=== PATIENT | female | born 1985 | race Caucasian/White ===

== ENCOUNTER 2016-11-02 05:14 | Inpatient (IN) | payer MEDICAID, OTHER ==
[~2016-11-02] VITALS: Ht 160 cm; Wt 63.6 kg
[~2016-11-02 05:14] MED LIST: PRENATALS; [UNRECOGNIZED DRUG - REMARK]
[2016-11-02 05:22] VITALS: BP 135/85
[2016-11-02] MEDS ORDERED: OXYTOCIN 30U/ 0.9% NaCL 500ML 500 ML ONE ×2 (05:26→09:46)
[2016-11-02] MEDS ORDERED: NEWBORN KIT ONE (05:26)
[2016-11-02] MEDS ORDERED: OXYTOCIN 30U/ 0.9% NaCL 500ML 500 ML IV PRN (05:35)
[2016-11-02] MEDS ORDERED: OXYTOCIN 30U/ 0.9% NaCL 500ML 500 ML IV ONE (05:35)
[2016-11-02] MEDS ORDERED: D5%-LACTATED RINGERS 1,000 ML IV SCH (05:35)
[2016-11-02] MEDS ORDERED: LACTATED RINGERS 1,000 ML IV SCH (05:35)
[2016-11-02 05:48] LABS: DAU SCREEN DISCLAIMER
[2016-11-02] MEDS ORDERED: FENTANYL PF 100 MCG/2ML ONE ×2 (05:52→07:27)
[2016-11-02] MEDS: FENTANYL PF 100 MCG/2ML IV PRN ×3 (05:55→08:31)
[2016-11-02] MEDS ORDERED: FENTANYL PF 100 MCG/2ML IVPush PRN (06:00)
[2016-11-02] MEDS ORDERED: METOCLOPRAMIDE 5 MG/ML, 2ML IVPush PRN (06:00)
[2016-11-02] MEDS ORDERED: SODIUM CITRATE/CITRIC ACID 30 ML UDC PO PRN (06:00)
[2016-11-02] MEDS ORDERED: PLEASE ENTER HEIGHT AND WEIGHT MC SCH (06:00)
[2016-11-02 06:24] LABS: HEMATOCRIT 34.5 % (34.6-47.8); HEMOGLOBIN 11.8 g/dL (11.7-16.4); WHITE BLOOD COUNT 11.6 x10^3/uL (3.4-10)
[2016-11-02] MEDS ORDERED: ACET1TAB64 PO (08:00)
[2016-11-02] MEDS ORDERED: PREN1TAB60 PO (08:00)
[2016-11-02] MEDS ORDERED: AMOX-291 PO (08:00)
[2016-11-02] MEDS ORDERED: METH20TA PO (08:00)
[2016-11-02] MEDS ORDERED: OXYTOCIN 30U/ 0.9% NaCL 500ML 500 ML IV SCH ×2 (09:12)
[2016-11-02] MEDS ORDERED: OXYcodone/APAP 5/325MG TABLET ONE (09:23)
[2016-11-02] MEDS ORDERED: IBUPROFEN 600 MG TABLET ONE (09:27)
[2016-11-02] MEDS: OXYcodone/APAP 5/325MG TABLET PO PRN ×3 (09:28→20:29)
[2016-11-02] MEDS ORDERED: IBUPROFEN 800 MG TABLET ONE (09:29)
[2016-11-02] MEDS ORDERED: OXYcodone/APAP 5/325MG TABLET PO PRN (09:30)
[2016-11-02] MEDS ORDERED: DIPH,PERTUSS(ACELL),TET VAC/PF NC IM-VACC PRN (09:30)
[2016-11-02] MEDS ORDERED: METHYLERGONOVINE 0.2 MG/ML IM PRN (09:30)
[2016-11-02] MEDS ORDERED: ONDANSETRON 2MG/ML, 2ML IV PRN (09:30)
[2016-11-02] MEDS: IBUPROFEN 800 MG TABLET PO PRN ×2 (09:30→20:29)
[2016-11-02] MEDS ORDERED: ACETAMINOPHEN 325 MG TABLET PO PRN (09:30)
[2016-11-02] MEDS ORDERED: OXYTOCIN 10 UNITS/ML, 1ML IM PRN (09:30)
[2016-11-02 13:20] VITALS: BP 113/58
[2016-11-02] MEDS: METHYLPHENIDATE 10 MG TABLET PO SCH ×2 (13:30→20:29)
[2016-11-02 18:58] LABS: HEMATOCRIT 37.1 % (34.6-47.8); HEMOGLOBIN 12.7 g/dL (11.7-16.4); WHITE BLOOD COUNT 16.1 x10^3/uL (3.4-10)
[2016-11-02 20:10] VITALS: BP 108/68
[2016-11-02] MEDS: DOCUSATE 100 MG CAPSULE PO PRN (20:29)
[2016-11-03] MEDS: OXYcodone/APAP 5/325MG TABLET PO PRN ×2 (00:55→08:13)
[2016-11-03 01:00] VITALS: BP 103/55
[2016-11-03 04:00] VITALS: BP 105/60
[2016-11-03] MEDS: IBUPROFEN 800 MG TABLET PO PRN (08:13)
[2016-11-03] MEDS: METHYLPHENIDATE 10 MG TABLET PO SCH (08:13)
[2016-11-03] MEDS: DOCUSATE 100 MG CAPSULE PO PRN (08:13)
[2016-11-03 08:15] VITALS: BP 124/72
[2016-11-03] MEDS ORDERED: PRENATAL VIT/IRON/FA 1 EACH TABLET PO SCH (09:00)
[2016-11-03] MEDS ORDERED: IBUP-1222 PO (12:06)
[2016-11-03] MEDS ORDERED: OXYC-302 PO (12:06)
== END 2016-11-03 13:45 | disposition home or self-care (01) | DRG 775 ==
LOC: LDOP 05:14 → LDIP 05:55 → MERGE 05:55 → 2NW 13:08
PROVIDERS: ADMIT Obstetrics & Gynecology; ATTEND Obstetrics & Gynecology
PROC: 10E0XZZ Delivery of Products of Conception, External Approach (ICD-10-PCS; principal; 2016-11-02)
DX: O80 Encounter for full-term uncomplicated delivery (principal); Z37.0 Single live birth; Z3A.38 38 weeks gestation of pregnancy
CPT/HCPCS: 36415; 80307; 81003; 85025; 86850; 86900; 87086; J2405; J3010; G0479; J2590; J7120

== ENCOUNTER → 2017-05-25 | Outpatient (CLI) | payer MEDICAID ==
[~2017-05-25] MED LIST changes: +ACET1TAB64 PO; +ALPR-475 PO; +AMOX-291 PO; +IBUP-1222 PO; +METH20TA PO; +OXYC-302 PO; +PREN1TAB60 PO
== END ==
LOC: STAR 10:52
PROVIDERS: ATTEND Surgery
DX: Z02.9 Encounter for administrative examinations, unspecified (principal)

== ENCOUNTER 2017-05-31 08:41 | Day surgery (SDC) | payer MEDICAID ==
[~2017-05-31] VITALS: Ht 160 cm; Wt 57.9 kg
[~2017-05-31 08:41] MED LIST changes: +BUPIVACAINE/PF 0.5% ONE
[2017-05-31] MEDS ORDERED: FAMOTIDINE 20 MG TABLET PO ONE (09:00)
[2017-05-31] MEDS ORDERED: OxyconTIN ER 20 MG TAB.ER PO ONE (09:00)
[2017-05-31] MEDS ORDERED: LACTATED RINGERS 1,000 ML IV SCH (09:00)
[2017-05-31] MEDS ORDERED: ACETAMINOPHEN 500 MG TABLET PO ONE (09:00)
[2017-05-31] MEDS ORDERED: GABAPENTIN 300 MG CAPSULE PO ONE (09:00)
[2017-05-31 09:15] VITALS: BP 127/86
[2017-05-31] MEDS ORDERED: ONDANSETRON ODT 8 MG PO ONE (09:30)
[2017-05-31 10:10] LABS: HCG UR SG 1.025 (1.003-1.030)
[2017-05-31] MEDS ORDERED: FENTANYL PF 250 MCG/5ML ONE (10:10)
[2017-05-31] MEDS ORDERED: MIDAZOLAM 1 MG/ML, 2ML ONE (10:10)
[2017-05-31] MEDS ORDERED: PROPOFOL 10 MG/ML, 20ML ONE (10:12)
[2017-05-31] MEDS ORDERED: LIDOCAINE-MPF 2% ,5ML ONE (10:12)
[2017-05-31] MEDS ORDERED: DEXAMETHASONE 4 MG/ML, 1ML ONE ×2 (10:13)
[2017-05-31] MEDS ORDERED: ROCURONIUM 10 MG/ML,10ML ONE (10:24)
[2017-05-31] MEDS ORDERED: CEFOTETAN 2 GM ONE (10:24)
[2017-05-31] MEDS ORDERED: BUPIVACAINE/PF-EPI 0.5% 1:200K IM ONE (10:40)
[2017-05-31] MEDS ORDERED: morphine SULFATE 10 MG/ML, 1ML IVPush PRN (11:00)
[2017-05-31] MEDS ORDERED: OXYcodone 5 MG/5 ML ORAL.SOL UDC PO PRN ×2 (11:00→11:30)
[2017-05-31] MEDS ORDERED: FENTANYL PF 100 MCG/2ML ONE (11:21)
[2017-05-31] MEDS ORDERED: OXYcodone 5 MG/5 ML ORAL.SOL UDC ONE (11:21)
[2017-05-31] MEDS: FENTANYL PF 100 MCG/2ML IV PRN ×2 (11:25→11:41)
[2017-05-31] MEDS ORDERED: LABETALOL 5MG/ML, 20ML IV PRN (11:30)
[2017-05-31] MEDS ORDERED: PROMETHAZINE 25 MG/ML, 1ML IV PRN (11:30)
[2017-05-31] MEDS ORDERED: morphine SULFATE 10 MG/ML, 1ML IV PRN (11:30)
[2017-05-31] MEDS ORDERED: hydrALAzine 20 MG/ML, 1ML IV PRN (11:30)
[2017-05-31] MEDS ORDERED: MEPERIDINE/PF 25MG/0.5ML IVPush PRN (11:30)
[2017-05-31] MEDS ORDERED: METOCLOPRAMIDE 5 MG/ML, 2ML ONE (12:29)
[2017-05-31] MEDS ORDERED: METOCLOPRAMIDE 5 MG/ML, 2ML IVPush ONE (12:30)
== END 2017-05-31 14:40 ==
LOC: OUT 08:41
PROVIDERS: ATTEND Surgery
DX: K80.10 Calculus of gallbladder with chronic cholecystitis without obstruction (principal); F41.9 Anxiety disorder, unspecified; F17.210 Nicotine dependence, cigarettes, uncomplicated; Z98.51 Tubal ligation status; Z72.89 Other problems related to lifestyle
CPT/HCPCS: 47562; 81025; 88304; J1100; J2250; J2704; J2765; J3010; J3490; J7120; Q0162; S0074

== ENCOUNTER 2019-01-18 01:33 | Emergency (ER) | payer MEDICAID ==
[~2019-01-18] VITALS: Ht 160 cm; Wt 61.0 kg
[~2019-01-18 01:33] MED LIST changes: -ALPR-475 PO; +ALPR0.5T7 PO; -BUPIVACAINE/PF 0.5% ONE
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
[2019-01-18 01:43] VITALS: BP 143/75
[2019-01-18] MEDS ORDERED: AMOXICILLIN/CLAV 875-125MG TABLET PO STA (01:48)
[2019-01-18] MEDS ORDERED: AMOXICILLIN/CLAV 875-125MG TABLET ONE (02:14)
[2019-01-18] MEDS ORDERED: NEOSPORIN OINT. PKT 1 PACKET ONE (03:03)
--- NOTE | 2019-01-18 03:42 | NUR ---
PT D/C WITH D/C SUMMARY AND SCRIPTS. ALL QUESTIONS ANSWERED. PT PROVIDED WITH HOSPITAL SOCKS FOR D/C HOME WITH UBER. PT DENIES ANY OTHER NEEDS PERTAINING TO THIS VISIT. PT AMBULATES TO REGISTRATION DESK WITH SLOW BUT STEADY GAIT.
== END 2019-01-18 03:46 | disposition home or self-care (01) ==
LOC: ED 02:11
DX: S40.871A Other superficial bite of right upper arm, initial encounter (principal); S90.872A Other superficial bite of left foot, initial encounter; S90.871A Other superficial bite of right foot, initial encounter; S41.131A Puncture wound without foreign body of right upper arm, initial encounter; S91.332A Puncture wound without foreign body, left foot, initial encounter; F17.210 Nicotine dependence, cigarettes, uncomplicated; W54.0XXA Bitten by dog, initial encounter; Y93.89 Activity, other specified; Y92.009 Unspecified place in unspecified non-institutional (private) residence as the place of occurrence of the external cause; Y99.8 Other external cause status
CPT/HCPCS: 99283